=== PATIENT | male | born 1985 | race Caucasian/White ===

== ENCOUNTER 2024-07-10 03:54 | Emergency (ER) | payer SELFPAY ==
[2024-07-10 04:04] VITALS: BP 146/82; PULSE 64; RESP 20; TEMP 36.6; O2SAT 95; BMI 29.8
--- NOTE | 2024-07-10 04:25 | ED_ITS ---
HPI - Wound/Laceration General: Chief Complaint: Wound/Laceration Stated Complaint: R heel cut Time Seen by Provider: 07/10/24 04:01 History of Present Illness: Patient presents with a right heel injury after reportedly stepping on a belt buckle while lying on the floor. The injury occurred recently, and patient denies any foreign body sensation in the wound. Last tetanus shot was reportedly received in May 2011. Patient denies need for pain medication when offered. Review of Systems General: Reports: 10 or more systems reviewed and unremarkable except in HPI and below Physical Exam Const: COMMON NORMALS: no acute distress, patient oriented x3, alert and well nourished HENMT: COMMON NORMALS: normocephalic HEAD & SCALP: normocephalic Resp: COMMON NORMALS: normal respiratory effort, No retractions, No use of accessory muscles, clear to auscultation bilaterally and percussion normal AUSCULTATION: clear to auscultation bilaterally PERCUSSION: percussion normal Neuro: COMMON NORMALS: patient oriented x3 SENSORIUM/ORIENTATION: Yes alert Skin: NARRATIVE SKIN EXAM: Small flap superficial abrasion / laceration on plantar surface of right foot Course Vital Signs: Vital signs: Vital Signs Temperature 98 F 07/10/24 04:04 Pulse Rate 64 07/10/24 04:04 Respiratory Rate 20 H 07/10/24 04:04 Blood Pressure 146/82 07/10/24 04:04 Pulse Oximetry 95 07/10/24 04:04 MDM - Wound/Laceration Medical Decision Making 1. Acute heel laceration / abrasion - Plan to perform conservative debridement of non-viable skin flap - Wound cleansing and irrigation - Tetanus prophylaxis indicated due to last immunization >5 years ago 2. Pain Management - Patient declined oral analgesics 3. Follow-up - Return to clinic if signs of infection develop (increased pain, redness, swelling, drainage) - Keep wound clean and dry - Monitor for proper healing No radiology studies performed this visit Discharge Plan Discharge Patient Disposition: Home Clinical Impression: Laceration Condition: Stable Discharge Orders: Discharge ED (Routine); Ordered 07/10/24 Ordered By: John Staley Referrals: Suman Reveles MD [Primary Care Provider, [facility]] Discharge Diet: Usual diet Discharge Activity: Resume usual activity Patient Instructions: Opioid Safety, Pain Management Activity Restrictions/Additional Instructions: 1. Local wound care. Give non-sutured wound handout. Clean with soap and water. Print Language: Beninese Coding Level of Care Code ED [employer] Agent for Adalid Aragon
[2024-07-10] MEDS: tetanus-dipt-pertussis 0.5 mL SDV IM (04:35)
[2024-07-10 04:44] VITALS: BP 135/93; PULSE 80; RESP 16; O2SAT 100
== END 2024-07-10 04:45 | disposition home or self-care (01) ==
PROVIDERS: Emergency Provider Family Medicine; Family Provider Family Medicine; PCP Family Medicine
DX: S91.311A Laceration without foreign body, right foot, initial encounter (principal); X58.XXXA Exposure to other specified factors, initial encounter
CPT/HCPCS: 90471; 90715; 99283; A6446